=== PATIENT | female | born 1975 | race Two or more races ===

== ENCOUNTER 2018-07-18 18:43 | Emergency (ER) | payer OTHER ==
[~2018-07-18] VITALS: Ht 170.2 cm; Wt 81.6 kg
[~2018-07-18 18:43] MED LIST: ATORVASTATIN CA20 MG ORAL; ATORVASTATIN CA40 MG ORAL; CEPHALEXIN250 MG ORAL; FERROUS SULFAT325 M2 ORAL; FERROUS SULFAT325 MG ORAL; FLUTICASONE PRO16 G1 NASAL; LARIN1 EACH PO; LORATADINE1 GM MC; LORATADINE5 MG/5 ML PO; METHOCARBAMOL500 MG ORAL; METOPROLOL SUCC25 MG ORAL; METOPROLOL TART50 MG ORAL; NITROGLYCERIN0.4 MG SL; NITROSTAT0.3 MG SL; NORETHINDRONE0.35 MG PO; OMEPRAZOLE20 M2 ORAL; VENTOLIN HFA18 GM INH; ZANTAC150 MG ORAL
[2018-07-18] MEDS ORDERED: DIGOXIN0.125 MG/2 ORAL (18:48)
[2018-07-18] MEDS ORDERED: PLAVIX75 MG ORAL (18:48)
[2018-07-18] MEDS ORDERED: ATORVASTATIN CA10 MG ORAL (18:48)
--- NOTE | 2018-07-18 18:55 | Emergency Room Report ---
History of Present Illness General Chief Complaint: Generalized Weakness Source: Patient, Medical Record Present Illness HPI Patient is a 42-year-old female who presented after increased difficulty breathing. Patient reports having increased generalized weakness. She reports having prior history of atrial fibrillation and as well as asthma. She reports having some worsened symptoms over the past few days. She reports taking Plavix as well as flecainide due to chronic nature fibrillation. The patient was noted to have some shortness of breath. She stated she had increased leg swelling for approximately the last 3 days. She denies any fever. She reports having increased difficulty breathing. She states she recently been started on steroids Allergies: Coded Allergies: ASPIRIN (Verified Allergy, Unknown, 09/07/16) GRAPEFRUIT (Verified Allergy, Unknown, 07/18/18) [place] Nut (Verified Allergy, Unknown, 07/18/18) ALSO ALLERGIC TO PINE (GENERAL) Patient History Past Medical History: AFib Reviewed Nursing Documentation: PMH: Agreed; PSxH: Agreed Nursing Documentation-PMH Past Medical History: No History, Except For Hx Cardiac Problems: Yes - High cholesterol, Cardiac arrest 2012 Hx Hypertension: Yes Hx Asthma: Yes Hx Diabetes: Yes Hx Cancer: No Hx Gastrointestinal Problems: No Hx Neurological Problems: No Review of Systems All Other Systems: negative except mentioned in HPI Physical Exam Vital Signs Date Time Temp Pulse Resp B/P (MAP) Pulse Ox O2 Delivery O2 Flow Rate FiO2 07/18/18 18:45 97.8 88 18 115/82 98 Room Air 97.9 Sp02 EP Interpretation: reviewed, normal General Appearance: normal inspection, well appearing, no apparent distress, alert, GCS 15 Head: atraumatic ENT: normal ENT inspection, hearing grossly normal, normal voice Neck: normal inspection, full range of motion, supple, no bony tend Respiratory: normal inspection, no respiratory distress, no retraction, rales Cardiovascular #1: regular rate, rhythm, no edema Gastrointestinal: normal inspection, normal bowel sounds, non tender, soft, no guarding, no hernia Genitourinary: no CVA tenderness Musculoskeletal: normal inspection, back normal, normal range of motion Neurologic: normal inspection, alert, responsive, speech normal Psychiatric: normal inspection, judgement/insight normal, mood/affect normal Skin: normal inspection, normal color, no rash Medical Decision Making Diagnostic Impression: Primary Impression: CHF (congestive heart failure) Additional Impressions: History of atrial fibrillation Asthma ER Course Patient presented for shortness of breath. Differential included but was not limited to anemia, pneumonia, pneumothorax, myocardial infarction, pericardial effusion, congestive heart failure, acidosisBecause of complexity of patient's case laboratory testing and imaging studies were ordered.EKG interpreted by me showed normal sinus rhythm with a rate of 74 with incomplete right bundle- branch block without acute ST or T wave changes.Chest x-ray one view interpreted by me showed slight increased vascular markings consistent with mild congestive heart failure. The patient was given IV Lasix.The patient was discussed with Dr. Lewis who agreed to accept the patient in transfer. Labs Test 07/18/18 18:58 07/18/18 19:00 Prothrombin Time 10.2 SEC (9.30-11.50) Prothromb Time International Ratio 1.0 (0.9-1.1) Activated Partial Thromboplast Time 26 SEC (23-33) Sodium Level 144 MMOL/L (136-145) Potassium Level 3.1 MMOL/L (3.5-5.1) Chloride Level 105 MMOL/L (98-107) Carbon Dioxide Level 28 MMOL/L (21-32) Anion Gap 11 mmol/L (5-15) Blood Urea Nitrogen 19 mg/dL (7-18) Creatinine 0.8 MG/DL (0.55-1.30) Estimat Glomerular Filtration Rate > 60 mL/min (>60) Glucose Level 92 MG/DL (74-106) Calcium Level 9.3 MG/DL (8.5-10.1) Total Bilirubin 0.4 MG/DL (0.2-1.0) Aspartate Amino Transf (AST/SGOT) 16 U/L (15-37) Alanine Aminotransferase (ALT/SGPT) 36 U/L (12-78) Alkaline Phosphatase 160 U/L (46-116) Total Creatine Kinase 104 U/L (26-308) Creatine Kinase MB 1.7 NG/ML (0.0-3.6) Creatine Kinase MB Relative Index 1.6 Troponin I 0.000 ng/mL (0.000-0.056) Pro-B-Type Natriuretic Peptide 362 pg/mL (0-125) Total Protein 7.9 G/DL (6.4-8.2) Albumin 4.1 G/DL (3.4-5.0) Globulin 3.8 g/dL Albumin/Globulin Ratio 1.1 (1.0-2.7) White Blood Count 9.9 K/UL (4.8-10.8) Red Blood Count 5.02 M/UL (4.20-5.40) Hemoglobin 15.8 G/DL (12.0-16.0) Hematocrit 46.1 % (37.0-47.0) Mean Corpuscular Volume 92 FL (80-99) Mean Corpuscular Hemoglobin 31.5 PG (27.0-31.0) Mean Corpuscular Hemoglobin Concent 34.4 G/DL (32.0-36.0) Red Cell Distribution Width 11.7 % (11.6-14.8) Platelet Count 336 K/UL (150-450) Mean Platelet Volume 6.6 FL (6.5-10.1) Neutrophils (%) (Auto) 60.3 % (45.0-75.0) Lymphocytes (%) (Auto) 29.4 % (20.0-45.0) Monocytes (%) (Auto) 6.6 % (1.0-10.0) Eosinophils (%) (Auto) 2.0 % (0.0-3.0) Basophils (%) (Auto) 1.8 % (0.0-2.0) EKG Diagnostic Results Rate: normal Rhythm: NSR ST Segments: no acute changes Rhythm Strip Diag. Results EP Interpretation: yes Rhythm: NSR, no PVC's, no ectopy Last Vital Signs Date Time Temp Pulse Resp B/P (MAP) Pulse Ox O2 Delivery O2 Flow Rate FiO2 07/18/18 18:45 97.8 88 18 115/82 98 Room Air 97.9 Status: improved Disposition: HOME, SELF-CARE Condition: Stable Sanchez Salazar MD Jul 18, 2018 18:55
[2018-07-18 19:09] VITALS: BP 115/82
[2018-07-18 19:13] LABS: BASOPHILS % (AUTO) 1.8 % (0.0-2.0); HEMATOCRIT 46.1 % (37.0-47.0); HEMOGLOBIN 15.8 G/DL (12.0-16.0); LYMPHOCYTES % (AUTO) 29.4 % (20.0-45.0); MEAN CORPUSCULAR VOLUME 92 FL (80-99); MONOCYTES % (AUTO) 6.6 % (1.0-10.0); NEUTROPHILS % (AUTO) 60.3 % (45.0-75.0); PLATELET COUNT 336 K/UL (150-450); RED BLOOD COUNT 5.02 M/UL (4.20-5.40); RED CELL DISTRIBUTION WIDTH 11.7 % (11.6-14.8); WHITE BLOOD COUNT 9.9 K/UL (4.8-10.8)
[2018-07-18 19:22] LABS: ANION GAP 11 mmol/L (5-15); BLOOD UREA NITROGEN 19 mg/dL (7-18); CALCIUM 9.3 MG/DL (8.5-10.1); CARBON DIOXIDE 28 MMOL/L (21-32); CHLORIDE 105 MMOL/L (98-107); CREATININE 0.8 MG/DL (0.55-1.30); POTASSIUM 3.1 MMOL/L (3.5-5.1); SODIUM 144 MMOL/L (136-145)
[2018-07-18] MEDS ORDERED: DIGITEK125 MCG PO (19:28)
[2018-07-18] MEDS ORDERED: LORATADINE10 M2 PO (19:28)
[2018-07-18] MEDS ORDERED: DULCOLAX STOOL100 M2 PO (19:28)
[2018-07-18 19:37] LABS: ALANINE AMINOTRANSFERASE 36 U/L (12-78); ALBUMIN 4.1 G/DL (3.4-5.0); ALBUMIN/GLOBULIN RATIO 1.1 (1.0-2.7); ALKALINE PHOSPHATASE 160 U/L (46-116); ASPARTATE AMINO TRANSFERASE 16 U/L (15-37); BILIRUBIN,TOTAL 0.4 MG/DL (0.2-1.0); CKMB 1.7 NG/ML (0.0-3.6); CREATINE KINASE 104 U/L (26-308)
[2018-07-18] MEDS ORDERED: FLUTICASONE PRO16 G1 NASAL (19:38)
[2018-07-18] MEDS ORDERED: ACETAMINOPHEN-1 EAC1 ORAL (19:38)
[2018-07-18] MEDS ORDERED: FLECAINIDE ACE100 MG ORAL (19:38)
[2018-07-18] MEDS ORDERED: PREDNISONE10 MG ORAL (19:38)
[2018-07-18] MEDS ORDERED: ANTI-ITCH 2%-0.35 GM TP (19:50)
[2018-07-18] MEDS ORDERED: TRIAMCINOLONE A15 G1 TP (19:50)
[2018-07-18] MEDS ORDERED: NITROSTAT0.4 M1 SL (19:50)
[2018-07-18 22:07] VITALS: BP 98/68
[2018-07-18 22:29] VITALS: BP 98/68
--- NOTE | 2018-07-19 09:41 | Diagnostic Imaging Report ---
Indication: Shortness of breath Technique: One view of the chest Comparison: 09/07/2016 Findings: Lungs and pleural spaces are clear. Heart size is normal Impression: No acute process
--- NOTE | 2018-07-26 18:49 | Cardiology Report ---
APPROVED REPORT EKG Measurement Heart [id number] Normal sinus rhythm with sinus arrhythmia Normal ECG
== END 2018-07-18 22:29 | disposition home or self-care (01) ==
LOC: EDBD 18:43 → EDUNIT# 18:43 → EMR 19:14
DX: I11.0 Hypertensive heart disease with heart failure (principal); I50.9 Heart failure, unspecified; I48.91 Unspecified atrial fibrillation; J45.909 Unspecified asthma, uncomplicated; E11.9 Type 2 diabetes mellitus without complications; E78.00 Pure hypercholesterolemia, unspecified; Z86.74 Personal history of sudden cardiac arrest; Z88.6 Allergy status to analgesic agent; Z91.018 Allergy to other foods
CPT/HCPCS: 36415; 71045; 80053; 82550; 82553; 83880; 84484; 85025; 85610; 85730; 93005; 96374; 99284; J1940; J8499